=== PATIENT | male | born 2000 | race African-American/Black ===

== ENCOUNTER 2020-03-03 18:41 | Emergency (ER) | payer OTHER ==
[~2020-03-03] VITALS: Ht 188 cm; Wt 104.9 kg
[2020-03-03] MEDS ORDERED: ACETAMINOPHEN 500 MG TABLET PO ONE (19:00)
[2020-03-03] MEDS ORDERED: IBUPROFEN 600 MG TABLET. PO ONE (19:30)
[2020-03-03] MEDS ORDERED: CYCL5TAB PO (21:03)
--- NOTE | 2020-03-03 21:03 | PHYS DOC ---
Past History Past Medical History: Sciatica Additional Past Medical Histor: eczema, concussions, multiple broken bones Past Surgical History: No Surgical History Alcohol Use: Occasionally Adult General Chief Complaint Chief Complaint: LOWER BACK PAIN OR INJURY HPI HPI Patient is a 19-year-old male who presents for fall. This occurred less than 1 hour prior to arrival. Patient was trying to ambulate up stairs while carrying a couch when he fell backwards landing on his left lumbar area and subsequently hitting back of head. He did not lose consciousness and was able to ambulate f rom scene. He reports of dull headache at present and diffuse pain in left lower back area that does not radiate. He has not taken anything for the pain. Patient was able to ambulate and drive to our facility for evaluation Review of Systems Review of Systems Fourteen body systems of review of systems have been reviewed. See HPI for pertinent positives and negative responses, other francois all other systems are negative, non-pertinent or non-contributory Current Medications Current Medications Current Medications Medications (Trade) Dose Ordered Sig/Imani Start Time Stop Time Status Last Admin Dose Admin Acetaminophen (Tylenol) 1,000 mg 1X ONCE 03/03/20 19:00 03/03/20 19:32 DC 03/03/20 19:34 1,000 MG Ibuprofen (Motrin) 600 mg 1X ONCE 03/03/20 19:30 03/03/20 19:32 DC 03/03/20 19:34 600 MG Allergies Allergies Allergies Coded Allergies Type Severity Reaction Last Updated Verified No Known Allergies Allergy Unknown 03/03/20 Yes Physical Exam Physical Exam Constitutional: Pt is oriented to person, place, and time. Pt appears well- developed and well-nourished. HENT: Head: Normocephalic and atraumatic. Mouth/Throat: Oropharynx is clear and moist. No hematomas or lacerations or abrasions to face or scalp OP clear, no blood, no malocclusion, dentition intact Nares clear, no nasal septal hematoma External ears unremarkable, no schultz sign Midface stable Eyes: Conjunctivae and EOM are normal. Pupils are equal, round, and reactive to light. Neck: C-spine midline nontender, no step-offs Cardiovascular: Normal rate, regular rhythm and normal heart sounds. Pulmonary/Chest: Effort normal and breath sounds normal. No respiratory distress. No wheezes. CTA bilaterally Abdominal: Soft. Bowel sounds are normal. Pt exhibits no distension. There is no tenderness. Musculoskeletal: No bony tenderness to extremities, no deformities, full ROM extremities Pain present to left paralumbar muscles to palpation Chest wall stable Pelvis stable and non-tender No vertebral TTP and spine without stepoffs Neurological: Pt is alert and oriented to person, place, and time. Moving all extremities willfully, able to wiggle all fingers and toes Alert and oriented x 3 Sensation grossly intact Skin: Skin is warm and dry. No abrasions, no lacerations Psychiatric: Behavior is appropriate for situation Nursing note and vitals reviewed. Current Patient Data Vital Signs Vital Signs Date Time Temp Pulse Resp B/P (MAP) Pulse Ox O2 Delivery O2 Flow Rate FiO2 03/03/20 18:41 97.6 88 16 144/79 (100) 96 Room Air EKG EKG [] Radiology/Procedures Radiology/Procedures [] Heart Score Risk Factors: Risk Factors: DM, Current or recent (<one month) smoker, HTN, HLP, family history of CAD, obesity. Risk Scores: Risk Factors: DM, Current or recent (<one month) smoker, HTN, HLP, family history of CAD, obesity. Course & Med Decision Making Course & Med Decision Making ABCs unremarkable, patient ambulatory and well-appearing with grossly benign physical exam Discussed potential role of imaging of patient's head, C-spine clear, no evidence for imaging of lower back. Joint decision to defer head imaging. Patient observed in ER for greater than 2 hours without any evidence of clinical deterioration. Patient responded to Tylenol and ibuprofen administration while in ER. Joint decision to discharge home with continued supportive care advised for most likely diagnosis of contusion status post fall and instructions follow-up with outpatient primary care physician in upcoming 1 to 10 days time after ER departure. Strict return precautions were discussed with good understanding by patient, all questions and concerns addressed prior to ER departure in stable condition Dragon Disclaimer Dragon Disclaimer This electronic medical record was generated, in whole or in part, using a voice recognition dictation system. Departure Departure: Impression: Primary Impression: Closed head injury Additional Impression: Fall Disposition: 01 DC HOME SELF CARE/HOMELESS Condition: STABLE Referrals: PCP,NO (PCP) Patient Instructions: Back Exercises, Contusion, Fall Prevention and Home Safety Scripts Cyclobenzaprine Hcl (CYCLOBENZAPRINE HCL) 5 Mg Tablet 1 TAB PO QHS for MUSCLE SPASMS, #10 TAB Prov: VANESSA QUAN DO 03/03/20 Problem Qualifiers VANESSA QUAN DO Mar 03, 2020 21:03
[2020-03-03 21:10] VITALS: BP 136/64
== END 2020-03-03 21:10 | disposition home or self-care (01) ==
LOC: ER 18:41
DX: S09.90XA Unspecified injury of head, initial encounter (principal); M54.5 Low back pain; W18.39XA Other fall on same level, initial encounter; Y93.89 Activity, other specified; Y92.89 Other specified places as the place of occurrence of the external cause; Y99.8 Other external cause status
CPT/HCPCS: 99283

== ENCOUNTER 2020-04-12 11:47 | Emergency (ER) | payer OTHER ==
[~2020-04-12] VITALS: Ht 188 cm; Wt 102.9 kg
[~2020-04-12 11:47] MED LIST: CYCL5TAB PO
[2020-04-12 11:57] VITALS: BP 141/83
--- NOTE | 2020-04-12 12:18 | PHYS DOC ---
Past History Past Medical History: No Pertinent History Additional Past Medical Histor: eczema, concussions, multiple broken bones Past Surgical History: No Surgical History Alcohol Use: None General Adult EDM: Chief Complaint: MECHANICAL FALL HPI: HPI: Patient is a 18-year-old male coming in for left ankle pain after a fall. Pat ient states he was try to clear his car off and slipped on ice. Fell down and hit his left buttock and flank on some steps. Denies any head injury. History otherwise has been well, has no past medical history. Patient states his foot slid outwards. Has been able to ambulate with slight limp. Review of Systems: Review of Systems: all other systems within normal limits except for as noted in the HPI Allergies: Allergies: Allergies Coded Allergies Type Severity Reaction Last Updated Verified No Known Allergies Allergy Unknown 03/03/20 Yes Physical Exam: PE: Constitutional: Well developed, well nourished, no acute distress, non-toxic appearance. [] HENT: Normocephalic, atraumatic, bilateral external ears normal, nose normal. [] Eyes: PERRLA, conjunctiva normal, no discharge. [] Neck: No rigidity, supple, no stridor. [] Cardiovascular: Regular rate and rhythm, brisk cap refill [] Lungs & Thorax: Non labored symmetric respirations, no tachypnea or respiratory distress [] Abdomen: Soft, nondistended. Skin: Warm, dry, no erythema, no rash. [] Back: No tenderness, no CVA tenderness. [] Extremities: No deformities, range of motion grossly intact, no lower extremity edema [], tenderness over left heel and medial malleolus Neurologic: Alert and oriented X 3, no focal deficits noted. [] Psychologic: Affect normal, judgement normal, mood normal. [] Current Patient Data: Vital Signs: Vital Signs Date Time Temp Pulse Resp B/P (MAP) Pulse Ox O2 Delivery O2 Flow Rate FiO2 04/12/20 11:57 97.8 79 16 141/83 (102) 98 Room Air EKG: EKG: [] Radiology/Procedures: Radiology/Procedures: EXAM: XR EXAM OF ANKLE_LEFT 3V 04/12/2020 12:07 PM CLINICAL INDICATION: Fall, medial malleolar pain COMPARISON: None TECHNIQUE: 3 views of the left ankle FINDINGS: No acute fracture, alignment is normal. The ankle mortise is symmetric and talar dome is intact. Soft tissue is normal. IMPRESSION: Negative study. [] Heart Score: Risk Factors: Risk Factors: DM, Current or recent (<one month) smoker, HTN, HLP, family history of CAD, obesity. Risk Scores: Score 0 - 3: 2.5% MACE over next 6 weeks - Discharge Home Score 4 - 6: 20.3% MACE over next 6 weeks - Admit for Clinical Observation Score 7 - 10: 72.7% MACE over next 6 weeks - Early Invasive Strategies Course & Med Decision Making: Course & Med Decision Making Pertinent Labs and Imaging studies reviewed. (See chart for details) [] Dragon Disclaimer: Dragon Disclaimer: This electronic medical record was generated, in whole or in part, using a voice recognition dictation system. Departure Departure: Impression: Primary Impression: Fall due to ice or snow Additional Impression: Ankle sprain Disposition: 01 DC HOME SELF CARE/HOMELESS Condition: STABLE Referrals: PCP,NO (PCP) Patient Instructions: Elastic Bandage and RICE FRAN FISCHER MD Apr 12, 2020 12:18
--- NOTE | 2020-04-12 12:35 | RAD ---
EXAM: XR EXAM OF ANKLE_LEFT 3V 04/12/2020 12:07 PM CLINICAL INDICATION: Fall, medial malleolar pain COMPARISON: None TECHNIQUE: 3 views of the left ankle FINDINGS: No acute fracture, alignment is normal. The ankle mortise is symmetric and talar dome is i ntact. Soft tissue is normal. IMPRESSION: Negative study. Electronically signed by: Louisa Ly MD (04/12/2020 12:33 PM) [id number]
== END 2020-04-12 12:44 | disposition home or self-care (01) ==
LOC: ER 11:47
DX: S93.402A Sprain of unspecified ligament of left ankle, initial encounter (principal); W00.0XXA Fall on same level due to ice and snow, initial encounter; Y93.89 Activity, other specified; Y92.89 Other specified places as the place of occurrence of the external cause; Y99.8 Other external cause status
CPT/HCPCS: 73610; 99283

== ENCOUNTER 2020-08-02 22:10 | Emergency (ER) | payer OTHER ==
[~2020-08-02] VITALS: Ht 188 cm; Wt 104.0 kg
[2020-08-02 22:23] VITALS: BP 130/87
[2020-08-02] MEDS ORDERED: ALBUTEROL SULFATE 8GM INHALER. ONE (22:41)
[2020-08-02] MEDS ORDERED: IBUPROFEN 600 MG TABLET. PO ONE (22:45)
[2020-08-02] MEDS ORDERED: ACETAMINOPHEN 500 MG TABLET PO ONE (22:45)
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
== END 2020-08-02 23:40 | disposition home or self-care (01) ==
LOC: ER 22:10
DX: R51.9 Headache, unspecified (principal); M54.2 Cervicalgia; G89.11 Acute pain due to trauma; V49.88XA Car occupant (driver) (passenger) injured in other specified transport accidents, initial encounter; Y92.488 Other paved roadways as the place of occurrence of the external cause; Y93.89 Activity, other specified; Y99.8 Other external cause status
CPT/HCPCS: 70450; 72125; 99285-25